=== PATIENT | male | born 2000 ===

== ENCOUNTER 2025-06-11 21:45 | Emergency (ER) | payer BC ==
[2025-06-11] MEDS ORDERED: Acetaminophen 500 MG TAB ONE (22:15)
[2025-06-11] MEDS ORDERED: Albuterol 2.5 MG (3 mL) NEB ONE (22:18)
[2025-06-11 22:31] LABS: Actual Bicarbonate (HCO3v) 26.7 mEq/L (22-28); Analyzer IN Cardio CS ER; Base Excess 1.2 mEq/L (-2 - +2); Calcium, Ionized (venous) 1.23 mmol/L (1.16-1.32); Chloride (VBG) 102 mmol/L (98-106); Hematocrit-VBG 46 % (42.0-52.0); Hemoglobin (Hb) 15.7 g/dL (13.2-17.3); Potassium (VBG) 3.90 mmol/L (3.70-5.30); Puncture Site Other Site; RapidComm Collect By RN; Sodium 141 mmol/L (133-146)
[2025-06-11 22:38] LABS: #Basophils 0.08 10x3/uL (0.0-0.2); #Eosinophils 0.58 10x3/uL (0.0-0.5); #Monocytes 0.70 10x3/uL (0.0-1.1); #Neutrophils 5.61 10x3/uL (1.5-8.4); %Basophils 0.9 % (0.0-2.0); %Eosinophils 6.2 % (0.0-6.0); %Lymphocytes 25.0 % (18.0-47.0); %Monocytes 7.5 % (0.0-10.0); %Neutrophils 60.3 % (40.0-75.0); Hematocrit 44.5 % (38.8-50.0); Hemoglobin 14.8 g/dL (13.5-17.5); Mean Corpuscular Hemoglobin 27.2 pg (27.0-33.0); Mean Corpuscular Volume 81.7 fL (81.2-95.1); Platelet Count 245 10x3/uL (150-450); Red Blood Cell (RBC) Count 5.45 10x6/uL (4.32-5.72); White Blood Cell (WBC) Count 9.31 10x3/uL (3.5-10.5)
[2025-06-11 22:53] LABS: ALT (SGPT) 81 U/L (Less than 45); AST (SGOT) 60 U/L (11-34); Albumin 4.2 g/dL (3.1-4.5); Alkaline Phosphatase 195 U/L (40-110); Anion Gap 13 mmol/L (10-20); BUN (Urea Nitrogen) 13 mg/dL (8.9-20.6); Bilirubin, Total 0.4 mg/dL (0.3-1.2); Calc. Creatinine Clearance 0 mL/min (70-130); Calcium 9.6 mg/dL (7.8-10.44); Carbon Dioxide 26 mmol/L (22-29); Chloride 104 mmol/L (98-107); Globulin 3.1 g/dL (2.4-3.5); Glucose 135 mg/dL (70-105); Potassium 3.6 mmol/L (3.5-5.1); Sodium 139 mmol/L (136-145)
[2025-06-11] MEDS ORDERED: cefTRIAXone (ROCEPHIN) 1 GM VIAL ONE (22:54)
== END 2025-06-11 23:24 | disposition home or self-care (01) ==
LOC: CSHERS 21:45
DX: J20.9 Acute bronchitis, unspecified (principal); J06.9 Acute upper respiratory infection, unspecified; F17.290 Nicotine dependence, other tobacco product, uncomplicated
CPT/HCPCS: 36415; 71250; 80053; 82805; 83605; 85025; 87040; 87426; 94645; 94760; 96374; 96375; J0696; J2919; J7611